=== PATIENT | male | born 1955 | race Caucasian/White ===

== ENCOUNTER 2025-06-23 10:45 | Emergency (ER) | payer MEDICARE, OTHER ==
[~2025-06-23] VITALS: Ht 182.9 cm; Wt 60.5 kg
[2025-06-23 10:50] VITALS: TEMP 97
[2025-06-23] MEDS ORDERED: IPRATROPIUM 0.5 MG/ALBUTEROL 2.5 MG INH SOL UD 3 ML NEB PRN (11:30)
[2025-06-23 11:54] LABS: VENOUS BASE EXCESS 0.1 (-2.0-2.0); VENOUS HCO3 26.9 MMOL/L (23.0-27.0); VENOUS O2 SATURATION 60.6 % (60.0-80.0); VENOUS PARTIAL PRESSURE CO2 51.7 mmHg (38.0-50.0); VENOUS PARTIAL PRESSURE O2 33.1 mmHg (30.0-50.0); VENOUS PH 7.334 UNITS (7.330-7.430); VENOUS STANDARD HCO3 23.7 MMOL/L; VENOUS TOTAL CO2 28.5 MMOL/L (24.0-28.0)
[2025-06-23 12:01] LABS: BASO # 0.0 10^3/uL (0.0-0.2); BASO % 0.4 % (0.0-1.0); EOS # 0.0 10^3/uL (0.0-0.5); EOS % 1.1 % (0.0-3.0); LYMPH # 0.8 10^3/uL (1.5-5.0); LYMPH % 27.3 % (24.0-44.0); MONO # 0.2 10^3/uL (0.0-0.8); MONO % 8.2 % (2.0-8.0); NEUTROPHILS # 1.8 10^3/uL (1.5-8.5); NEUTROPHILS % 63.0 % (36.0-66.0); PLATELET COUNT, AUTOMATED 126 10^3/uL (150-450)
[2025-06-23 12:33] LABS: ALT/SGPT 26 U/L (7.0-40); AST/SGOT 22 U/L (<34); CALCIUM LEVEL 8.3 MG/DL (8.3-10.6); CARBON DIOXIDE LEVEL 26 MMOL/L (20-31); CHLORIDE LEVEL 99 MMOL/L (98-107); CREATININE FOR GFR 0.59 MG/DL (0.70-1.30); GLOMERULAR FILTRATION RATE > 90.0 (>42); POTASSIUM SERUM 4.0 MMOL/L (3.5-5.1); SODIUM LEVEL 132 MMOL/L (136-145)
[2025-06-23 13:27] VITALS: O2SAT 88
[2025-06-23] MEDS ORDERED: PRED20TA PO (13:35)
[2025-06-23 13:45] VITALS: BP 130/63; O2SAT 94
== END 2025-06-23 13:49 | disposition home or self-care (01) ==
LOC: M ED 10:45
DX: J06.9 Acute upper respiratory infection, unspecified (principal); B34.1 Enterovirus infection, unspecified; J44.1 Chronic obstructive pulmonary disease with (acute) exacerbation; F17.200 Nicotine dependence, unspecified, uncomplicated; Z79.52 Long term (current) use of systemic steroids
CPT/HCPCS: 71045; 80048; 80076; 82803; 83880; 84443; 85025; 87486; 87581; 87633; 87798; 93041; 94760; 96374; 99285; J2919